=== PATIENT | female | born 1930 | race Caucasian/White ===

== ENCOUNTER → 2016-08-18 | Outpatient (CLI) | payer MEDICARE ==
[~2016-08-18] MED LIST: AMBIEN5 MG PO; AMOXICILLIN500 MG PO; ANTIVERT/2525 M1 PO; ANTIVERT25 MG PO; ATIVAN0.5 MG; ATIVAN0.5 MG PO; BACTROBAN22 TP; BENTYL10 MG PO; BENTYL20 MG PO; BISOPROLOL10 MG; BYSTOLIC10 MG PO; CALCIUM 600 + V1 TA1 PO; CALCIUM WITH VI1 TAB PO; CIPRO500 MG PO; CLARITIN10 MG PO; CLEOCIN HCL300 MG PO; FLAGYL500 MG; IBU-8800 MG PO; LEVAQUIN250 M1 PO; LISINOPRIL10 MG; LISINOPRIL10 MG PO; MELOXICAM15 MG PO; MOBIC15 MG PO; MOTRIN600 MG PO; NAPROSYN375 MG PO; OMEPRAZOLE20 M2 PO; PAROXETINE HCL20 MG PO; PREDNISONE10 MG PO; PRILOSEC20 MG; PRILOSEC20 MG PO; PROTONIX40 MG PO; PROZAC10 MG PO; TRAMADOL HCL50 MG PO; TRAZODONE50 MG PO; TYLENOL500 MG PO; VITAMIN D; VITAMIN D2400 IU; VITAMIN D50000 I2 PO; VITAMIN D50000 I3 PO; Vicodin 5/500 505 MG PO; ZANTAC 150150 MG PO; ZOFRAN4 MG PO; Zofran4 MG PO; [UNRECOGNIZED DRUG - REMARK]
[2016-08-18 11:11] LABS: BASO # 0.1 10*3/uL (0.0-0.1); BASO % 2.3 % (0.0-1.0); EOS # 0.1 10*3/uL (0.0-0.4); EOS % 2.8 % (1.0-4.0); HEMATOCRIT 39.7 % (37.0-47.0); HEMOGLOBIN 12.6 g/dl (12.0-16.0); LYMPH # 1.2 10*3/uL (1.3-4.4); LYMPH % 32.7 % (27.0-41.0); MEAN CELL VOLUME 96.1 fl (81.0-99.0); MEAN CORPUSCULAR HGB 30.5 pg (27.0-31.0); MEAN CORPUSCULAR HGB CONC 31.7 g/dl (33.0-37.0); MEAN PLATELET VOLUME 12.1 fl (9.6-12.3); MONO # 0.3 10*3/uL (0.1-1.0); MONO % 7.4 % (3.0-9.0); NEUT # 1.9 10*3/uL (2.3-7.9); NEUT % 54.5 % (47.0-73.0); PLATELET COUNT AUTOMATED 151 10*3/uL (130-400); RED BLOOD COUNT 4.13 10*6/uL (4.10-5.10); RED CELL DISTRI WIDTH 13.2 % (0-14.5); WHITE BLOOD COUNT 3.5 10*3/uL (4.8-10.8)
[2016-08-18 11:26] LABS: ALBUMIN 3.3 gm/dl (3.1-4.5); BILIRUBIN, TOTAL 0.4 mg/dl (0.2-1.0); POTASSIUM 3.7 mmol/L (3.5-5.1); TOTAL PROTEIN 6.5 gm/dL (6.4-8.2)
[2016-08-18 11:32] LABS: THYROID STIM HORMONE (HS) 2.4 uIU/ml (0.358-4.75)
== END | disposition home or self-care (01) ==
LOC: LAB 10:32
PROVIDERS: Internal Medicine
DX: I10 Essential (primary) hypertension (principal)

== ENCOUNTER 2016-12-07 21:13 | Inpatient (IN) | payer MEDICARE, MEDICAID ==
[~2016-12-07] VITALS: Ht 157.4 cm; Wt 61.4 kg
[~2016-12-07 21:13] MED LIST changes: -PAROXETINE HCL20 MG PO; +PAROXETINE HCL30 MG PO
[2016-12-07 21:20] VITALS: BP 170/82
[2016-12-07 22:27] LABS: BASO # 0.1 10*3/uL (0.0-0.1); BASO % 1.2 % (0.0-1.0); EOS # 0.1 10*3/uL (0.0-0.4); EOS % 1.4 % (1.0-4.0); HEMOGLOBIN 11.9 g/dl (12.0-16.0); LYMPH # 1.1 10*3/uL (1.3-4.4); LYMPH % 22.2 % (27.0-41.0); MEAN CORPUSCULAR HGB 29.8 pg (27.0-31.0); MEAN CORPUSCULAR HGB CONC 31.3 g/dl (33.0-37.0); MEAN PLATELET VOLUME 11.4 fl (9.6-12.3); MONO # 0.5 10*3/uL (0.1-1.0); MONO % 9.4 % (3.0-9.0); NEUT # 3.2 10*3/uL (2.3-7.9); NEUT % 65.6 % (47.0-73.0); PLATELET COUNT AUTOMATED 167 10*3/uL (130-400); RED CELL DISTRI WIDTH 13.1 % (0-14.5); WHITE BLOOD COUNT 4.9 10*3/uL (4.8-10.8)
[2016-12-07 22:36] LABS: PROTHROMBIN TIME 10.2 SECONDS (9.0-12.4)
[2016-12-07 22:38] LABS: BILIRUBIN NEGATIVE (NEGATIVE); BLOOD TRACE-INTACT (NEGATIVE); CLARITY CLEAR (CLEAR); COLOR YELLOW (YELLOW); GLUCOSE NEGATIVE (NEGATIVE); KETONE NEGATIVE (NEGATIVE); LEUKO ESTERASE TRACE (NEGATIVE); NITRITE POSITIVE (NEGATIVE); PROTEIN NEGATIVE (NEGATIVE); SPECIFIC GRAVITY <= 1.005 (1.005-1.030)
[2016-12-07 22:47] LABS: ALBUMIN 3.5 gm/dl (3.1-4.5); ALKALINE PHOSPHATASE 55 U/L (45-117); BILIRUBIN, TOTAL 0.5 mg/dl (0.2-1.0); BUN 28 mg/dl (7-24); CARBON DIOXIDE 26 mmol/L (21-32); CHLORIDE 110 mmol/L (98-107); EST GLOM FILT AFRICAN AMERICAN 46 ml/min; GLUCOSE 94 mg/dL (65-99); SGOT/AST 16 IU/L (3-35); SGPT/ALT 15 U/L (12-78); SODIUM 143 mmol/L (136-145); TOTAL PROTEIN 6.3 gm/dL (6.4-8.2)
[2016-12-07 22:48] LABS: C-REACTIVE PROTEIN < 0.29 MG/DL (0-0.3); TROPONIN I < 0.015 ng/ml (<0.045)
[2016-12-07 22:54] LABS: BACTERIA 3+; RBC 0-2 rbc/hpf (0-2); URINE REFLEX COMMENT YES (NO)
[2016-12-07 23:22] VITALS: BP 147/73
[2016-12-08] VITALS: BP 154/76
[2016-12-08 03:52] LABS: BASO # 0.1 10*3/uL (0.0-0.1); BASO % 1.6 % (0.0-1.0); EOS # 0.2 10*3/uL (0.0-0.4); HEMATOCRIT 35.8 % (37.0-47.0); HEMOGLOBIN 11.1 g/dl (12.0-16.0); LYMPH # 1.5 10*3/uL (1.3-4.4); LYMPH % 29.5 % (27.0-41.0); MEAN CELL VOLUME 96.2 fl (81.0-99.0); MEAN CORPUSCULAR HGB 29.8 pg (27.0-31.0); MEAN PLATELET VOLUME 11.2 fl (9.6-12.3); MONO # 0.6 10*3/uL (0.1-1.0); NEUT # 2.7 10*3/uL (2.3-7.9); NEUT % 54.5 % (47.0-73.0); PLATELET COUNT AUTOMATED 151 10*3/uL (130-400); RED BLOOD COUNT 3.72 10*6/uL (4.10-5.10); RED CELL DISTRI WIDTH 13.2 % (0-14.5)
[2016-12-08 04:06] LABS: POTASSIUM 3.9 mmol/L (3.5-5.1)
[2016-12-08 04:11] LABS: FREE T4 0.94 ng/dl (0.76-1.46); PHOSPHOROUS 3.7 mg/dL (2.5-4.9)
[2016-12-08 04:17] LABS: THYROID STIM HORMONE (HS) 3.1 uIU/ml (0.358-4.75)
[2016-12-08 07:25] LABS: VITAMIN D, 25-HYDROXY 26.4 ng/mL (30-100)
[2016-12-08 07:36] LABS: FOLIC ACID > 24.00 ng/mL (>5.38)
[2016-12-08 08:00] VITALS: BP 146/70
[2016-12-08] MEDS ORDERED: RISPERDAL0.5 MG PO (09:58)
[2016-12-08 12:00] VITALS: BP 116/60
[2016-12-08 16:00] VITALS: BP 107/58
[2016-12-08 20:00] VITALS: BP 145/74
[2016-12-09] VITALS: BP 155/96
[2016-12-09 05:10] LABS: POTASSIUM 3.6 mmol/L (3.5-5.1)
[2016-12-09 06:07] LABS: BASO % 0.9 % (0.0-1.0); EOS % 0.7 % (1.0-4.0); HEMATOCRIT 34.5 % (37.0-47.0); HEMOGLOBIN 10.7 g/dl (12.0-16.0); LYMPH # 0.8 10*3/uL (1.3-4.4); LYMPH % 16.3 % (27.0-41.0); MEAN CELL VOLUME 96.1 fl (81.0-99.0); MEAN CORPUSCULAR HGB 29.8 pg (27.0-31.0); MEAN PLATELET VOLUME 12.4 fl (9.6-12.3); MONO # 0.4 10*3/uL (0.1-1.0); MONO % 8.9 % (3.0-9.0); NEUT # 3.4 10*3/uL (2.3-7.9); NEUT % 72.5 % (47.0-73.0); PLATELET COUNT AUTOMATED 133 10*3/uL (130-400); RED BLOOD COUNT 3.59 10*6/uL (4.10-5.10); RED CELL DISTRI WIDTH 13.1 % (0-14.5); WHITE BLOOD COUNT 4.6 10*3/uL (4.8-10.8)
[2016-12-09 08:00] VITALS: BP 125/54
[2016-12-09 12:00] VITALS: BP 132/70
[2016-12-09 16:00] VITALS: BP 142/65
[2016-12-09] MEDS ORDERED: D-1000 185 MG-11 TAB PO (16:39)
[2016-12-09 20:00] VITALS: BP 154/89
== END 2016-12-09 22:16 | disposition short-term general hospital (02) | DRG 871 ==
LOC: ED 21:13 → EDHOLD 23:06 → 4E 23:06
PROVIDERS: Emergency Medicine Emergency Medical Services; Internal Medicine; Internal Medicine Hospice and Palliative Medicine
DX: A41.9 Sepsis, unspecified organism (principal); G93.41 Metabolic encephalopathy; G91.2 (Idiopathic) normal pressure hydrocephalus; S32.029A Unspecified fracture of second lumbar vertebra, initial encounter for closed fracture; R13.10 Dysphagia, unspecified; N39.0 Urinary tract infection, site not specified; N18.3 Chronic kidney disease, stage 3 (moderate); R65.20 Severe sepsis without septic shock; D72.810 Lymphocytopenia; F32.9 Major depressive disorder, single episode, unspecified; F41.1 Generalized anxiety disorder; Z66 Do not resuscitate; K21.9 Gastro-esophageal reflux disease without esophagitis; Z51.5 Encounter for palliative care; M15.9 Polyosteoarthritis, unspecified; D64.9 Anemia, unspecified; G47.00 Insomnia, unspecified; I12.9 Hypertensive chronic kidney disease with stage 1 through stage 4 chronic kidney disease, or unspecified chronic kidney disease; M25.551 Pain in right hip; M54.5 Low back pain; Z88.2 Allergy status to sulfonamides; Z79.899 Other long term (current) drug therapy; Z80.0 Family history of malignant neoplasm of digestive organs; R29.6 Repeated falls; G89.29 Other chronic pain; M43.8X4 Other specified deforming dorsopathies, thoracic region; M43.8X6 Other specified deforming dorsopathies, lumbar region; M51.35 Other intervertebral disc degeneration, thoracolumbar region; W19.XXXA Unspecified fall, initial encounter; Y93.89 Activity, other specified; Y92.89 Other specified places as the place of occurrence of the external cause; Y99.8 Other external cause status

== ENCOUNTER → 2017-01-12 | Outpatient (CLI) | payer MEDICARE, MEDICAID ==
[~2017-01-12] MED LIST changes: +D-1000 185 MG-11 TAB PO; +RISPERDAL0.5 MG PO
--- NOTE | ~2017-01-12 | SLPPN ---
[place], [place] DYE WEIGHER PROGRESS NOTE NAME: MALORIE BENJAMIN UNIT #: [id number] ROOM: DOCTOR: RUTH PIEDRA MD Speech Language Pathology Treatment Note Page 1 1 of Patient Name: MALORIE BENJAMIN Date: 01/12/2017 01:27 PM : 1930 SOC Date: 01/12/2017 Provider: [facility] Provider #: [id number] Treating Clinician: NIKO Valenzuela-DYE WEIGHER Referring Physician: RUTH PIEDRA Onset Date Description Code Primary Diagnosis: 01/10/2017 A000.00 DIAGNOSIS FROM INTERFACE NOT FOUND IN [facility] TABLE Time In: 09:00 AM Time Out: 10:00 AM DYE WEIGHER Interventions and CPT Codes Consisted of: CPT Code Modifiers Minutes Units MOTION FLUOROSCOPY/SWALLOW 61363 60 1 Total Minutes: 60 Total Timed Minutes: 0 Total Untimed Minutes: 60 Total Units: 1 Total Timed Units: 0 Total Untimed Units: 1 01/12/2017 1:28:28 PM LUCIANO Valenzuela Date/Time State License #: [id number] CM:GENEPN 1334 1334 [facility]
--- NOTE | ~2017-01-12 | SLPPOC ---
[place], [place] MOLD HOISTER PLAN OF CARE NAME: MALORIE BENJAMIN UNIT #: [id number] ROOM: DOCTOR: RUTH PIEDRA MD Speech Language Pathology Plan of Care Page 1 1 (Initial Evaluation) of Patient Name: MALORIE BENJAMIN Date: 01/12/2017 01:25 PM : 1930 SOC Date: 01/12/2017 Provider: [facility] Provider #: [id number] Treating Clinician: NIKO Valenzuela-MOLD HOISTER Referring Physician: RUHT PIEDRA Medicare #: [id number] Visits From SOC: 1 Medicaid #: [id number] Onset Date Code Description Primary Diagnosis: 01/10/2017 A000.00 DIAGNOSIS FROM INTERFACE NOT FOUND IN [facility] TABLE Subjective Comments: Initial evaluation created to initiate the electronic medical record. Please see [employer] for details. Initial Level Goals Functional Limitation Reporting Swallowing G8996 - Swallowing functional limitation, current status at therapy episode outset and at reporting intervals Current Status: CJ - At least 20 percent but less than 40 percent impaired, limited or restricted G8997 - Swallowing functional limitation, projected goal status, at therapy episode outset, at reporting intervals, and at discharge or to end reporting Goal Status: CJ - At least 20 percent but less than 40 percent impaired, limited or restricted G8998 - Swallowing functional limitation, discharge status, at discharge from therapy or to end reporting Discharge Status: CJ - At least 20 percent but less than 40 percent impaired, limited or restricted 01/12/2017 1:27:18 PM RUTH PIEDRA Date/Time NIKO Valenzuela-GENE Date I certify the need for these services furnished under this plan of treatment while under my care. State License #: [id number] CM:SLPPOC 1334 1334 IS THERAPY [place]
--- NOTE | ~2017-01-12 | PROC NOTE ---
[place], [place] PROCEDURE NOTE NAME: MALORIE BENJAMIN [facility] #: [id number] UNIT #: [id number] ROOM: DOCTOR: SHANTAL MARIANOANN BIRTHDATE: [birth year] DOS: 01/12/2017 MODIFIED BARIUM SWALLOW ORDERING PHYSICIAN: Dr. Abreu. RADIOLOGIST: Dr. Saldivar. BACKGROUND INFORMATION: The patient is an 86-year-old female who was seen for modified barium swallow. This test was ordered to rule out aspiration and determine most appropriate diet consistency. The patient was accompanied to today's study by several family members who reported that she has had difficulty swallowing. She receives a pureed diet and thick liquids. Medical history is significant for depression, dementia, failure to thrive, anxiety, schizoaffective disorder, HTN, GERD and dysphagia. For today's assessment, the patient was alert and cooperative, anxiety was displayed. The patient frequently shook in her chair while waiting for the test to begin and often reached for the clinician. Comforting was provided and seemed to be effective. Hoarse vocal quality was noted. The patient was also noted to display coughing and congestion at rest prior to being given any oral consistency. The patient was receiving oxygen by nasal cannula. Oral peripheral examination revealed presence of upper and lower denture. Labial skills were mildly reduced in strength and range of motion. Lingual skills were moderately reduced in strength and range of motion. The patient was unable to volitionally swallow. Volitional cough was congested. METHODS AND MATERIALS USED FOR THE EXAM: The patient was positioned in the lateral plane and examination was viewed under fluoroscopy. The patient was presented with a variety of consistencies to assess swallowing skills including applesauce mixed with barium presented in half teaspoon amounts, barium-coated banana presented in bite size piece and nectar thick barium taken by cup. The patient was given the cup and swallowed in single sip size amounts. ORAL PHASE: The patient achieved adequate labial seal around cup and spoon with no anterior loss displayed. Bolus formation and transit were mildly impaired with puree and solids. Mastication of soft solids was slow. She achieved adequate tongue to palate contact. Tongue to posterior pharyngeal wall contact was mildly impaired with soft solid. Velar functioning was within normal limits with no nasal regurgitation displayed. PHARYNGEAL PHASE: The pharyngeal swallow occurred within a timely manner. During the swallow, laryngeal elevation and epiglottic functions were adequate. No penetration or aspiration was observed with any consistency. A mild amount of residue remained in the vallecula following swallowing with barium coated banana. The patient was able to independently clear this residue with secondary swallow. ESOPHAGEAL PHASE: This phase of the swallow was not formally assessed during this examination. [place], [place] PROCEDURE NOTE [id number] UN[facility] #: [id number] ROOM: DOCTOR: REYMUNDO MARIANO BIRTHDATE: [birth year] IMPRESSIONS AND RECOMMENDATIONS: Based upon assessment results, this 86-year-old female presents with a mild oropharyngeal dysphagia. She exhibited mild difficulty with bolus formation and transit. Tongue to posterior pharyngeal wall contact was reduced resulting in residue in the vallecula; however, this cleared independently with subsequent swallow. No penetration or aspiration occurred. Recommend the patient receive a pureed diet and nectar thick liquids. Recommend safe swallow strategies such as upright positioning for all oral intake, small bites and sips and alternating liquids with solid. The patient would benefit from followup therapy at the shelter to ensure safety with diet through strengthening exercises, education and use of safe swallow strategies. Results and recommendations were shared with the patient, family members that accompanied her and a written copy was provided for education of shelter staff. Thank you very much for this referral. Should you have any questions regarding this patient, please contact the speech pathologist at [phone]. REYMUNDO MARIANO CM:PROCNOTE:PROCEDURE NOTE [id number] REYMUNDO MARIANO
--- NOTE | ~2017-01-12 | SLPIE ---
[place], [place] VICE CHAIRMAN INITIAL EVALUATION NAME: MALORIE BENJAMIN UNIT #: [id number] ROOM: DOCTOR: RUTH PIEDRA MD Speech Language Pathology Initial Evaluation Page 1 1 of Patient Name: MALORIE BENJAMIN Date: 01/12/2017 01:25 PM : 1930 SOC Date: 01/12/2017 Provider: [facility] Provider #: [id number] Treating Clinician: NIKO Valenzuela-GENE Referring Physician: RUTH PIEDRA Patient Information Address: [address] [place] [address] Physician: RUTH PIEDRA Physician #: City, [facility], Zip: [place], [place] [address] Occupation: Unknown # of Approved Visits: 0 Gender: Female Medicaid #: [id number] [employer]: [employer]ORTENS[employer] Medicare #: [id number] Rehabilitation Information / History Onset Date Code Description Primary Diagnosis: 01/10/2017 A000.00 DIAGNOSIS FROM INTERFACE NOT FOUND IN [facility] TABLE Subjective Comments: Initial evaluation created to initiate the electronic medical record. Please see [employer] for details. Clinical Findings Functional Goals Functional Limitation Reporting Swallowing G8996 - Swallowing functional limitation, current status at therapy episode outset and at reporting intervals Current Status: CJ - At least 20 percent but less than 40 percent impaired, limited or restricted G8997 - Swallowing functional limitation, projected goal status, at therapy episode outset, at reporting intervals, and at discharge or to end reporting Goal Status: CJ - At least 20 percent but less than 40 percent impaired, limited or restricted G8998 - Swallowing functional limitation, discharge status, at discharge from therapy or to end reporting Discharge Status: CJ - At least 20 percent but less than 40 percent impaired, limited or restricted 01/12/2017 1:27:18 PM LUCIANO Valenzuela Date/Time [place], [place] VICE CHAIRMAN INITIAL EVALUATION NAME: MALORIE BENJAMIN UNIT #: [id number] ROOM: DOCTOR: RUTH PIEDRA MD [facility] License #: [id number] CM:SLPIE 1334 1334 IS THERAPY [place]
--- NOTE | 2017-01-13 08:11 | NUR ---
SPEECH PATHOLOGY Outpatient MBS completed as per orders. Patient was alert and cooperative but displayed anxiety as well as cough and congestion at rest. A mild oropharyngeal was displayed during assessment. She exhibited mild diffiuclty with bolus formation and transit. Tongue to posterior pharyngeal wall contact was reduced resulting in residue in valleculae with soft solid hoWever this cleared independently with subsequent swallow or liquid wash. No penetration or aspiration occurred during this study. Recommend patient receive a pureed diet and nectar thick liquids. Recommend safe swallow strategies such as upright positioning for all po intake, small bites/sips and alternating liquid with solid. [facility] to [facility] with diet through strengthening exercises, education and use of safe swallow strategies. Results and mavis. were shared with patient, family members that accompanied her and a written copy was provided for education of [facility] staff. Dictated report to follow. Thank you for this referral. REYMUNDO MARIANO MSCCC-TITLE INSURANCE EXAMINER
== END | disposition home or self-care (01) ==
LOC: RAD/SH 03:01
DX: R62.7 Adult failure to thrive (principal); R05 Cough; R63.3 Feeding difficulties; K21.9 Gastro-esophageal reflux disease without esophagitis

== ENCOUNTER 2017-04-21 07:55 | Emergency (ER) | payer MEDICARE, MEDICAID ==
[~2017-04-21] VITALS: Ht 152.4 cm; Wt 45.4 kg
[2017-04-21 07:59] VITALS: BP 149/79
== END 2017-04-21 09:44 | disposition home or self-care (01) ==
LOC: ED 07:55
DX: S20.212A Contusion of left front wall of thorax, initial encounter (principal); S20.211A Contusion of right front wall of thorax, initial encounter; S30.0XXA Contusion of lower back and pelvis, initial encounter; K21.9 Gastro-esophageal reflux disease without esophagitis; G47.00 Insomnia, unspecified; F32.9 Major depressive disorder, single episode, unspecified; I12.9 Hypertensive chronic kidney disease with stage 1 through stage 4 chronic kidney disease, or unspecified chronic kidney disease; N18.3 Chronic kidney disease, stage 3 (moderate); F41.1 Generalized anxiety disorder; Z90.710 Acquired absence of both cervix and uterus; W19.XXXA Unspecified fall, initial encounter; Y93.89 Activity, other specified; Y92.89 Other specified places as the place of occurrence of the external cause; Y99.8 Other external cause status

== ENCOUNTER 2017-06-04 05:39 | Emergency (ER) | payer MEDICARE, MEDICAID ==
[~2017-06-04] VITALS: Ht 154.9 cm; Wt 56.7 kg
[2017-06-04 05:39] VITALS: BP 133/77
[2017-06-04] MEDS ORDERED: BUSPIRONE10 MG PO (05:48)
[2017-06-04] MEDS ORDERED: KLONOPIN0.5 MG PO (05:48)
[2017-06-04] MEDS ORDERED: MEGACE 40400 MG/10 PO (05:48)
[2017-06-04] MEDS ORDERED: MILK OF MA400 MG/51 PO (05:49)
[2017-06-04] MEDS ORDERED: DOXYCYCLINE100 MG PO (05:49)
[2017-06-04] MEDS ORDERED: ARICEPT5 M1 PO (05:50)
[2017-06-04] MEDS ORDERED: NAMENDA10 MG PO (05:50)
[2017-06-04] MEDS ORDERED: LIDODERM1 EACH T (05:51)
[2017-06-04] MEDS ORDERED: B121000 MCG/1 IM (05:51)
[2017-06-04] MEDS ORDERED: DEPAKOTE ER250 MG PO (05:52)
[2017-06-04] MEDS ORDERED: DEPAKOTE ER500 MG PO (05:52)
[2017-06-04] MEDS ORDERED: TYLENOL EXTRA500 MG PO (05:52)
[2017-06-04] MEDS ORDERED: DUONEB 3 MG/3 ML3 M1 INH (05:53)
[2017-06-04] MEDS ORDERED: VITAMIN D33000 UNIT PO (05:53)
[2017-06-04] MEDS ORDERED: PRILOSEC20 M1 PO (05:54)
[2017-06-04] MEDS ORDERED: LISINOPRIL10 M1 PO (05:54)
[2017-06-04] MEDS ORDERED: COLACE 2-IN-11 EACH PO (05:54)
== END 2017-06-04 06:20 | disposition home or self-care (01) ==
LOC: ED 05:39
DX: Z04.3 Encounter for examination and observation following other accident (principal); I12.9 Hypertensive chronic kidney disease with stage 1 through stage 4 chronic kidney disease, or unspecified chronic kidney disease; N18.3 Chronic kidney disease, stage 3 (moderate); K21.9 Gastro-esophageal reflux disease without esophagitis; M19.90 Unspecified osteoarthritis, unspecified site; Z98.890 Other specified postprocedural states; Z90.710 Acquired absence of both cervix and uterus; Z79.899 Other long term (current) drug therapy; Z88.2 Allergy status to sulfonamides; W06.XXXA Fall from bed, initial encounter; Y93.89 Activity, other specified; Y92.89 Other specified places as the place of occurrence of the external cause; Y99.9 Unspecified external cause status

== ENCOUNTER 2017-06-25 16:51 | Emergency (ER) | payer MEDICARE, MEDICAID ==
[~2017-06-25] VITALS: Wt 54.4 kg
[~2017-06-25 16:51] MED LIST changes: +ARICEPT5 M1 PO; +B121000 MCG/1 IM; +BUSPIRONE10 MG PO; +COLACE 2-IN-11 EACH PO; +DEPAKOTE ER250 MG PO; +DEPAKOTE ER500 MG PO; +DOXYCYCLINE100 MG PO; +DUONEB 3 MG/3 ML3 M1 INH; +KLONOPIN0.5 MG PO; +LIDODERM1 EACH T; +LISINOPRIL10 M1 PO; +MEGACE 40400 MG/10 PO; +MILK OF MA400 MG/51 PO; +NAMENDA10 MG PO; +PRILOSEC20 M1 PO; +TYLENOL EXTRA500 MG PO; +VITAMIN D33000 UNIT PO
[2017-06-25] MEDS ORDERED: MIRTAZAPINE7.5 MG PO (17:05)
[2017-06-25] MEDS ORDERED: SEN-O-TABS8.6 MG PO (17:08)
[2017-06-25 17:27] LABS: BASO # 0.1 10*3/uL (0.0-0.1); EOS # 0.1 10*3/uL (0.0-0.4); HEMOGLOBIN 8.9 g/dl (12.0-16.0); LYMPH # 1.2 10*3/uL (1.3-4.4); LYMPH % 23.8 % (27.0-41.0); MEAN CELL VOLUME 96.6 fl (81.0-99.0); MEAN CORPUSCULAR HGB 30.7 pg (27.0-31.0); MEAN CORPUSCULAR HGB CONC 31.8 g/dl (33.0-37.0); MEAN PLATELET VOLUME 11.4 fl (9.6-12.3); MONO # 0.6 10*3/uL (0.1-1.0); MONO % 12.7 % (3.0-9.0); NEUT # 2.9 10*3/uL (2.3-7.9); NEUT % 59.9 % (47.0-73.0); PLATELET COUNT AUTOMATED 191 10*3/uL (130-400); RED CELL DISTRI WIDTH 14.3 % (0-14.5); WHITE BLOOD COUNT 4.9 10*3/uL (4.8-10.8)
[2017-06-25 17:50] LABS: BUN 31 mg/dl (7-24); CHLORIDE 111 mmol/L (98-107); CREATININE 0.96 mg/dL (0.55-1.02); POTASSIUM 4.5 mmol/L (3.5-5.1); SODIUM 143 mmol/L (136-145)
[2017-06-25 18:57] VITALS: BP 120/80
== END 2017-06-25 19:23 | disposition home or self-care (01) ==
LOC: ED 16:51
PROVIDERS: Emergency Medicine
DX: S90.31XA Contusion of right foot, initial encounter (principal); D64.9 Anemia, unspecified; F03.90 Unspecified dementia, unspecified severity, without behavioral disturbance, psychotic disturbance, mood disturbance, and anxiety; K21.9 Gastro-esophageal reflux disease without esophagitis; I12.9 Hypertensive chronic kidney disease with stage 1 through stage 4 chronic kidney disease, or unspecified chronic kidney disease; N18.3 Chronic kidney disease, stage 3 (moderate); Z88.8 Allergy status to other drugs, medicaments and biological substances; Z88.2 Allergy status to sulfonamides; Z90.710 Acquired absence of both cervix and uterus; W05.0XXA Fall from non-moving wheelchair, initial encounter; Y93.89 Activity, other specified; Y92.128 Other place in nursing home as the place of occurrence of the external cause; Y99.8 Other external cause status

== ENCOUNTER 2017-09-11 19:29 | Emergency (ER) | payer MEDICARE, MEDICAID ==
[~2017-09-11] VITALS: Ht 147.3 cm; Wt 49.9 kg
[~2017-09-11 19:29] MED LIST changes: +MIRTAZAPINE7.5 MG PO; +SEN-O-TABS8.6 MG PO
[2017-09-11 19:31] VITALS: BP 133/70
[2017-09-11] MEDS ORDERED: DOCUSATE SODIU100 M2 PO (20:02)
[2017-09-11] MEDS ORDERED: HALOPERIDO100 MG/11 IM (20:03)
[2017-09-11] MEDS ORDERED: DUONEB 3 MG/3 ML3 M1 INH (20:05)
[2017-09-11] MEDS ORDERED: PRILOSEC20 M1 PO (20:06)
[2017-09-11] MEDS ORDERED: PRINIVIL10 MG PO (20:06)
[2017-09-11] MEDS ORDERED: SEN-O-TABS8.6 MG PO (20:08)
[2017-09-11 20:10] LABS: BILIRUBIN NEGATIVE (NEGATIVE); BLOOD NEGATIVE (NEGATIVE); CLARITY SL CLOUDY (CLEAR); COLOR YELLOW (YELLOW); GLUCOSE NEGATIVE (NEGATIVE); KETONE NEGATIVE (NEGATIVE); LEUKO ESTERASE 2+ (NEGATIVE); NITRITE POSITIVE (NEGATIVE); SPECIFIC GRAVITY 1.015 (1.005-1.030); UROBILINOGEN 0.2 E.U./dl (0.2-1.0)
[2017-09-11 20:18] LABS: BACTERIA 3+; EPITHELIAL CELLS 0-2; WBC 31-40 wbc/hpf (0-5)
[2017-09-11] MEDS ORDERED: MACROBID100 M1 PO (21:23)
== END 2017-09-11 21:45 | disposition home or self-care (01) ==
LOC: ED 19:29
PROVIDERS: Emergency Medicine
DX: S86.912A Strain of unspecified muscle(s) and tendon(s) at lower leg level, left leg, initial encounter (principal); N39.0 Urinary tract infection, site not specified; I12.9 Hypertensive chronic kidney disease with stage 1 through stage 4 chronic kidney disease, or unspecified chronic kidney disease; N18.3 Chronic kidney disease, stage 3 (moderate); M19.90 Unspecified osteoarthritis, unspecified site; K21.9 Gastro-esophageal reflux disease without esophagitis; Z79.899 Other long term (current) drug therapy; Z90.710 Acquired absence of both cervix and uterus; Z98.890 Other specified postprocedural states; Z88.2 Allergy status to sulfonamides; W19.XXXA Unspecified fall, initial encounter; Y93.89 Activity, other specified; Y92.89 Other specified places as the place of occurrence of the external cause; Y99.9 Unspecified external cause status